=== PATIENT | female | born 1975 | race Caucasian/White ===

== ENCOUNTER → 2021-02-05 | Outpatient (CLI) | payer BC ==
[2021-02-05 17:35] LABS: BASO # 0.1 10^3/uL (0.0-0.2); BASO % 0.8 % (0.0-1.0); EOS # 0.1 10^3/uL (0.0-0.5); EOS % 1.1 % (0.0-3.0); HEMOGLOBIN 13.9 g/dl (12.0-15.5); LYMPH # 2.7 10^3/uL (1.5-5.0); LYMPH % 30.7 % (24.0-44.0); MEAN CORPUSCULAR HEMOGLOBIN 25.9 pg (27.0-33.0); MEAN CORPUSCULAR HGB CONC 32.3 g/dl (32.0-36.5); MEAN CORPUSCULAR VOLUME 80.2 fl (80.0-96.0); MONO # 0.6 10^3/uL (0.0-0.8); NEUTROPHILS # 5.3 10^3/uL (1.5-8.5); NEUTROPHILS % 60.1 % (36.0-66.0); PLATELET COUNT, AUTOMATED 380 10^3/uL (150-450); RED BLOOD COUNT 5.36 10^6/uL (4.00-5.40); WHITE BLOOD COUNT 8.7 10^3/uL (4.0-10.0)
== END ==
LOC: M LAB 16:38
PROVIDERS: ATTEND Ophthalmology
DX: B58.01 Toxoplasma chorioretinitis (principal)

== ENCOUNTER → 2022-02-03 | Outpatient (REF) | payer BC ==
[2022-02-03 16:08] LABS: APPEARANCE, URINE CLEAR (CLEAR); BACTERIA, URINE AUTO NEGATIVE (NEGATIVE); BILIRUBIN, URINE AUTO NEGATIVE (NEGATIVE); BLOOD, URINE BLOOD 3+ (NEGATIVE); COLOR, URINE YELLOW (YELLOW); GLUCOSE, URINE (UA) AUTO NEGATIVE (NEGATIVE); KETONE, URINE AUTO NEGATIVE (NEGATIVE); LEUKOCYTE ESTERASE, URINE AUTO NEGATIVE (NEGATIVE); MUCUS, URINE SMALL (NEGATIVE); NITRITE, URINE AUTO NEGATIVE (NEGATIVE); PROTEIN, URINE AUTO NEGATIVE (NEGATIVE); RBC, URINE AUTO 39 /HPF (0-3); SPECIFIC GRAVITY URINE AUTO 1.013 (1.002-1.035); SQUAMOUS EPITHELIAL CELL UR AU 1 /HPF (0-6); UROBILINOGEN, URINE AUTO 0.2 mg/dL (0.0-2.0); WBC, URINE AUTO 3 /HPF (0-3)
[2022-02-03 16:11] LABS: BASO # 0.1 10^3/uL (0.0-0.2); BASO % 0.6 % (0.0-1.0); EOS # 0.2 10^3/uL (0.0-0.5); EOS % 2.4 % (0.0-3.0); HEMATOCRIT 39.3 % (36.0-47.0); LYMPH # 2.7 10^3/uL (1.5-5.0); LYMPH % 30.7 % (24.0-44.0); MEAN CORPUSCULAR HEMOGLOBIN 27.5 pg (27.0-33.0); MEAN CORPUSCULAR HGB CONC 33.1 g/dl (32.0-36.5); MEAN CORPUSCULAR VOLUME 83.3 fl (80.0-96.0); MONO # 0.8 10^3/uL (0.0-0.8); MONO % 8.4 % (2.0-8.0); NEUTROPHILS # 5.1 10^3/uL (1.5-8.5); NEUTROPHILS % 57.5 % (36.0-66.0); PLATELET COUNT, AUTOMATED 319 10^3/uL (150-450); RED BLOOD COUNT 4.72 10^6/uL (4.00-5.40); WHITE BLOOD COUNT 8.9 10^3/uL (4.0-10.0)
[2022-02-03 16:38] LABS: ALBUMIN 3.7 GM/DL (3.2-5.2); ALT/SGPT 55 U/L (12-78); BILIRUBIN,TOTAL 0.3 MG/DL (0.2-1.0); BLOOD UREA NITROGEN 11 MG/DL (7-18); CALCIUM LEVEL 8.9 MG/DL (8.5-10.1); CARBON DIOXIDE LEVEL 28 MEQ/L (21-32); CHLORIDE LEVEL 105 MEQ/L (98-107); CHOLESTEROL LEVEL 225 MG/DL (<200); CHOLESTEROL RISK RATIO 4.245 (<5); CREATININE FOR GFR 0.91 MG/DL (0.55-1.30); FOLATE 11.1 NG/ML; FREE T4 1.13 NG/DL (0.76-1.46); GLOMERULAR FILTRATION RATE > 60.0 (>58); GLUCOSE, FASTING 99 MG/DL (70-100); HDL CHOLESTEROL 53 MG/DL (>40); LDL CHOLESTEROL 135 MG/DL (<100); NON-HDL-C 172 MG/DL; POTASSIUM SERUM 3.5 MEQ/L (3.5-5.1); SODIUM LEVEL 140 MEQ/L (136-145); TOTAL 25(OH) VITAMIN D 19.9 NG/ML (30.0-100.0); TOTAL PROTEIN 6.9 GM/DL (6.4-8.2); TRIGLYCERIDES LEVEL 183 MG/DL (<150); VITAMIN B12 LEVEL 680 PG/ML
== END ==
LOC: M SFHCCAPE 07:49
PROVIDERS: ATTEND Physician Assistant
DX: Z00.00 Encounter for general adult medical examination without abnormal findings (principal)

== ENCOUNTER → 2022-05-09 | Outpatient (CLI) | payer BC ==
[~2022-05-09] MED LIST: EFFE150C2 PO; ERGO500029 PO; HYDR12CA PO; LAMO100T3 PO; LEVO100T5 PO; OMEP-173 PO
== END ==
LOC: M LABSMTC 11:53
PROVIDERS: ATTEND Anesthesiology
DX: Z11.52 Encounter for screening for COVID-19 (principal); Z20.822 Contact with and (suspected) exposure to COVID-19

== ENCOUNTER → 2022-08-01 | Outpatient (CLI) | payer BC ==
[~2022-08-01] MED LIST changes: +VENL-115 PO; +VRAY1.5C PO
== END ==
LOC: M LABSMTC 10:19
PROVIDERS: ATTEND Anesthesiology
DX: Z01.812 Encounter for preprocedural laboratory examination (principal); Z20.822 Contact with and (suspected) exposure to COVID-19

== ENCOUNTER 2022-08-04 09:38 | Day surgery (SDC) | payer BC ==
[~2022-08-04] VITALS: Ht 170.2 cm; Wt 101.6 kg
[~2022-08-04 09:38] MED LIST changes: +NS 1,000 ML IV ONE
[2022-08-04] MEDS ORDERED: propofoL 200 MG/20 ML VIAL As Ordered ONE ×3 (11:12→11:37)
[2022-08-04] MEDS ORDERED: LIDOCAINE 2% 100MG/5ML SDV (FOR ANES.) As Ordered ONE (11:12)
[2022-08-04] MEDS ORDERED: LABETALOL 100MG/20ML VIAL As Ordered ONE (11:34)
[2022-08-04 12:09] VITALS: BP 111/59
== END 2022-08-04 12:12 | disposition home or self-care (01) ==
LOC: M OPP 09:38
PROVIDERS: ATTEND Surgery
DX: Z12.11 Encounter for screening for malignant neoplasm of colon (principal); K64.9 Unspecified hemorrhoids; K31.89 Other diseases of stomach and duodenum; K31.7 Polyp of stomach and duodenum; K30 Functional dyspepsia; Z79.899 Other long term (current) drug therapy; Z88.0 Allergy status to penicillin; Z88.2 Allergy status to sulfonamides; G47.33 Obstructive sleep apnea (adult) (pediatric); I10 Essential (primary) hypertension; E03.9 Hypothyroidism, unspecified

== ENCOUNTER → 2023-01-19 | Outpatient (REF) | payer BC ==
[~2023-01-19] MED LIST changes: -NS 1,000 ML IV ONE
[2023-01-19 18:00] LABS: THYROID STIMULATING HORMONE 4.815 uIU/ML (0.55-4.78)
[2023-01-19 18:01] LABS: FREE T4 1.11 NG/DL (0.89-1.76)
== END ==
LOC: M SFHCCAPE 07:23
PROVIDERS: ATTEND Physician Assistant
DX: E03.9 Hypothyroidism, unspecified (principal); I10 Essential (primary) hypertension; E55.9 Vitamin D deficiency, unspecified

== ENCOUNTER 2023-02-08 22:39 | Inpatient (IN) | payer BC ==
[~2023-02-08] VITALS: Ht 170.2 cm; Wt 104.3 kg
[2023-02-08] MEDS ORDERED: VENL-115 PO (22:52)
[2023-02-08] MEDS ORDERED: LAMO100T3 PO (22:52)
[2023-02-08] MEDS ORDERED: ERGO500029 PO (22:52)
[2023-02-08] MEDS ORDERED: VENLAFAXINE PO (22:52)
[2023-02-09 00:32] LABS: AMPHETAMINES LEVEL URINE NEGATIVE (NEGATIVE); BARBITURATES URINE NEGATIVE (NEGATIVE); BENZODIAZEPINES URINE NEGATIVE (NEGATIVE); CANNABINOIDS URINE NEGATIVE (NEGATIVE); COCAINE METABOLITE URINE NEGATIVE (NEGATIVE); PHENCYCLIDINE URINE NEGATIVE (NEGATIVE)
[2023-02-09 00:33] LABS: METHADONE URINE NEGATIVE (NEGATIVE); OPIATES URINE NEGATIVE (NEGATIVE)
[2023-02-09 00:34] LABS: ETHYL ALCOHOL (ETHANOL) < 0.003 % (0.000-0.010)
[2023-02-09 00:36] LABS: ACETAMINOPHEN LEVEL < 2.0 UG/ML (10.0-20.0); ALBUMIN 3.6 G/DL (3.2-5.2); ALKALINE PHOSPHATASE 170 U/L (46-116); ALT/SGPT 48 U/L (7.0-40); AST/SGOT 19 U/L (<34); BILIRUBIN,DIRECT < 0.1 MG/DL (<0.4); BILIRUBIN,TOTAL 0.3 MG/DL (0.3-1.2); BLOOD UREA NITROGEN 13 MG/DL (9-23); CALCIUM LEVEL 9.1 MG/DL (8.5-10.1); CARBON DIOXIDE LEVEL 27 MMOL/L (20-31); CHLORIDE LEVEL 102 MMOL/L (98-107); CREATININE FOR GFR 0.76 MG/DL (0.55-1.30); GLOMERULAR FILTRATION RATE > 60.0 (>58); GLUCOSE, FASTING 98 MG/DL (60-100); POTASSIUM SERUM 3.3 MMOL/L (3.5-5.1); SALICYLATE LEVEL < 3.0 MG/DL (<30); SODIUM LEVEL 138 MMOL/L (136-145); TOTAL PROTEIN 6.8 G/DL (5.7-8.2)
[2023-02-09 00:43] LABS: THYROID STIMULATING HORMONE 3.362 uIU/ML (0.55-4.78)
[2023-02-09 00:45] LABS: HEMATOCRIT 40.9 % (36.0-47.0); HEMOGLOBIN 13.5 g/dl (12.0-15.5); MEAN CORPUSCULAR HEMOGLOBIN 27.5 pg (27.0-33.0); MEAN CORPUSCULAR VOLUME 83.3 fl (80.0-96.0); PLATELET COUNT, AUTOMATED 319 10^3/uL (150-450); RED BLOOD COUNT 4.91 10^6/uL (4.00-5.40)
[2023-02-09 00:49] LABS: HCG, SERUM QUALITATIVE NEGATIVE (NEGATIVE)
[2023-02-09] MEDS ORDERED: POTASSIUM CHLORIDE 10MEQ SR TABLET PO ONE ×2 (01:45→07:50)
[2023-02-09] MEDS ORDERED: PRESCAP PO (08:35)
[2023-02-09] MEDS ORDERED: VENLAFAXINE PO (08:37)
[2023-02-09] MEDS ORDERED: HOME MED LIST COMPLETE! XX SCH (08:40)
[2023-02-09] MEDS: OMEPRAZOLE 20MG CAP PO SCH ×2 (09:00→21:27)
[2023-02-09] MEDS ORDERED: NICOTINE 21MG/24HR 1 EA TRANSDERMAL TD SCH (09:00)
[2023-02-09] MEDS ORDERED: traZODone 50 MG TAB PO PRN (13:25)
[2023-02-09] MEDS ORDERED: MOM 30ML SUSPENSION UDC PO PRN (13:25)
[2023-02-09] MEDS ORDERED: ACETAMINOPHEN TAB 650MG DOSE (2X325MG) PO PRN (13:25)
[2023-02-09] MEDS ORDERED: diphenhydrAMINE 25MG CAP PO PRN (13:25)
[2023-02-09] MEDS ORDERED: MAALOX 30 ML SUSP *UDC PO PRN (13:25)
[2023-02-09] MEDS ORDERED: VENL225T25 PO (14:08)
[2023-02-09] MEDS: LEVOTHYROXINE 100MCG TABLET (0.1MG) PO SCH (15:44)
[2023-02-09] MEDS: lamoTRIgine 100MG TAB PO SCH (15:45)
[2023-02-09 15:47] VITALS: BP 142/84
[2023-02-09] MEDS: hydroCHLOROthiazide 12.5 MG CAPSULE PO SCH (21:26)
[2023-02-10] MEDS: LEVOTHYROXINE 100MCG TABLET (0.1MG) PO SCH (05:29)
[2023-02-10 06:11] VITALS: BP 125/76
[2023-02-10] MEDS: VENLAFAXINE **XR** 75MG CAPSULE PO SCH (09:13)
[2023-02-10] MEDS: lamoTRIgine 100MG TAB PO SCH (09:13)
[2023-02-10] MEDS: OMEPRAZOLE 20MG CAP PO SCH ×2 (09:13→20:32)
[2023-02-10] MEDS: hydroCHLOROthiazide 12.5 MG CAPSULE PO SCH (09:13)
[2023-02-10 18:52] VITALS: BP 143/84
[2023-02-10] MEDS ORDERED: BACLOFEN 5MG PER 1/2 TABLET PO PRN (19:20)
[2023-02-11] MEDS: LEVOTHYROXINE 100MCG TABLET (0.1MG) PO SCH (05:33)
[2023-02-11 05:58] VITALS: BP 141/70
[2023-02-11 06:00] VITALS: BP 141/70
[2023-02-11] MEDS: hydroCHLOROthiazide 12.5 MG CAPSULE PO SCH (08:27)
[2023-02-11] MEDS: lamoTRIgine 100MG TAB PO SCH (08:27)
[2023-02-11] MEDS: OMEPRAZOLE 20MG CAP PO SCH ×2 (08:27→20:11)
[2023-02-11] MEDS: VENLAFAXINE **XR** 75MG CAPSULE PO SCH (08:27)
[2023-02-11] MEDS ORDERED: hydrOXYzine 50 MG TAB PO PRN (16:00)
[2023-02-11 16:12] VITALS: BP 133/83
[2023-02-12] MEDS: LEVOTHYROXINE 100MCG TABLET (0.1MG) PO SCH (05:28)
[2023-02-12 06:18] VITALS: BP 117/66
[2023-02-12] MEDS: OMEPRAZOLE 20MG CAP PO SCH ×2 (08:27→20:26)
[2023-02-12] MEDS: VENLAFAXINE **XR** 75MG CAPSULE PO SCH (08:28)
[2023-02-12] MEDS: lamoTRIgine 100MG TAB PO SCH (08:28)
[2023-02-12] MEDS: hydroCHLOROthiazide 12.5 MG CAPSULE PO SCH (08:28)
[2023-02-12 16:20] VITALS: BP 134/82
[2023-02-13] MEDS: LEVOTHYROXINE 100MCG TABLET (0.1MG) PO SCH (06:08)
[2023-02-13] MEDS: VENLAFAXINE **XR** 75MG CAPSULE PO SCH (08:25)
[2023-02-13] MEDS: hydroCHLOROthiazide 12.5 MG CAPSULE PO SCH (08:25)
[2023-02-13] MEDS: OMEPRAZOLE 20MG CAP PO SCH ×2 (08:25→20:02)
[2023-02-13] MEDS: lamoTRIgine 100MG TAB PO SCH (08:25)
[2023-02-13 09:54] VITALS: BP 133/86
[2023-02-13 18:35] VITALS: BP 128/81
[2023-02-14] MEDS: LEVOTHYROXINE 100MCG TABLET (0.1MG) PO SCH (05:30)
[2023-02-14 05:57] VITALS: BP 118/74
[2023-02-14] MEDS: lamoTRIgine 100MG TAB PO SCH (08:32)
[2023-02-14] MEDS: OMEPRAZOLE 20MG CAP PO SCH ×2 (08:33→20:09)
[2023-02-14] MEDS: VENLAFAXINE **XR** 75MG CAPSULE PO SCH (08:33)
[2023-02-14] MEDS: hydroCHLOROthiazide 12.5 MG CAPSULE PO SCH (08:33)
[2023-02-14] MEDS: IBUPROFEN 400MG TAB PO PRN ×2 (08:35→20:09)
[2023-02-14 18:40] VITALS: BP 146/70
[2023-02-15] MEDS: LEVOTHYROXINE 100MCG TABLET (0.1MG) PO SCH (05:33)
[2023-02-15 06:18] VITALS: BP 127/69
[2023-02-15] MEDS: OMEPRAZOLE 20MG CAP PO SCH ×2 (09:11→20:50)
[2023-02-15] MEDS: lamoTRIgine 100MG TAB PO SCH (09:11)
[2023-02-15] MEDS: VENLAFAXINE **XR** 75MG CAPSULE PO SCH (09:11)
[2023-02-15] MEDS: hydroCHLOROthiazide 12.5 MG CAPSULE PO SCH (09:11)
[2023-02-15] MEDS ORDERED: VENL150C43 PO (13:18)
[2023-02-15] MEDS ORDERED: HYDR50TA70 PO (13:18)
[2023-02-15] MEDS ORDERED: LAMO100T3 PO (13:18)
[2023-02-15] MEDS ORDERED: BACL10TA2 PO (13:18)
[2023-02-15] MEDS ORDERED: VENL225T25 PO (13:18)
[2023-02-15] MEDS: IBUPROFEN 400MG TAB PO PRN (15:29)
[2023-02-15 18:51] VITALS: BP 139/84
[2023-02-16] MEDS: LEVOTHYROXINE 100MCG TABLET (0.1MG) PO SCH (05:47)
[2023-02-16 06:33] VITALS: BP 143/73
[2023-02-16] MEDS: hydroCHLOROthiazide 12.5 MG CAPSULE PO SCH (09:29)
[2023-02-16] MEDS: lamoTRIgine 100MG TAB PO SCH (09:29)
[2023-02-16] MEDS: OMEPRAZOLE 20MG CAP PO SCH (09:30)
[2023-02-16] MEDS: VENLAFAXINE **XR** 75MG CAPSULE PO SCH (09:30)
== END 2023-02-16 11:16 | disposition home or self-care (01) | DRG 753 ==
LOC: M ED 22:39 → M ED INP 02-09 13:24 → M PSY 02-09 14:47
PROVIDERS: ADMIT Psychiatry & Neurology Psychiatry; ATTEND Student in an Organized Health Care Education/Training Program
DX: F31.30 Bipolar disorder, current episode depressed, mild or moderate severity, unspecified (principal); R45.851 Suicidal ideations; F63.0 Pathological gambling; E03.9 Hypothyroidism, unspecified; G47.33 Obstructive sleep apnea (adult) (pediatric); K21.9 Gastro-esophageal reflux disease without esophagitis; E55.9 Vitamin D deficiency, unspecified; I10 Essential (primary) hypertension; E66.01 Morbid (severe) obesity due to excess calories; Z79.890 Hormone replacement therapy; Z79.899 Other long term (current) drug therapy; Z88.0 Allergy status to penicillin; Z88.2 Allergy status to sulfonamides

== ENCOUNTER → 2023-03-08 | Outpatient (REF) | payer BC ==
[~2023-03-08] MED LIST changes: +BACL10TA2 PO; +HYDR50TA70 PO; +PRESCAP PO; +VENL150C43 PO; +VENL225T32 PO; +VENLAFAXINE PO
[2023-03-08 17:47] LABS: BASO % 0.6 % (0.0-1.0); EOS # 0.1 10^3/uL (0.0-0.5); EOS % 0.8 % (0.0-3.0); HEMATOCRIT 40.2 % (36.0-47.0); HEMOGLOBIN 13.1 g/dl (12.0-15.5); LYMPH # 2.2 10^3/uL (1.5-5.0); LYMPH % 33.7 % (24.0-44.0); MEAN CORPUSCULAR HEMOGLOBIN 27.4 pg (27.0-33.0); MEAN CORPUSCULAR HGB CONC 32.6 g/dl (32.0-36.5); MEAN CORPUSCULAR VOLUME 84.1 fl (80.0-96.0); MONO # 0.6 10^3/uL (0.0-0.8); MONO % 9.1 % (2.0-8.0); NEUTROPHILS # 3.6 10^3/uL (1.5-8.5); NEUTROPHILS % 55.5 % (36.0-66.0); PLATELET COUNT, AUTOMATED 290 10^3/uL (150-450); RED BLOOD COUNT 4.78 10^6/uL (4.00-5.40); WHITE BLOOD COUNT 6.5 10^3/uL (4.0-10.0)
[2023-03-08 17:53] LABS: HEMOGLOBIN A1c 5.2 % (4.0-6.0)
[2023-03-08 18:15] LABS: ALBUMIN 3.8 G/DL (3.2-5.2); ALKALINE PHOSPHATASE 131 U/L (46-116); ALT/SGPT 30 U/L (7.0-40); AST/SGOT 19 U/L (<34); BILIRUBIN,TOTAL 0.3 MG/DL (0.3-1.2); BLOOD UREA NITROGEN 18 MG/DL (9-23); CALCIUM LEVEL 9.1 MG/DL (8.5-10.1); CARBON DIOXIDE LEVEL 28 MMOL/L (20-31); CHLORIDE LEVEL 104 MMOL/L (98-107); CHOLESTEROL LEVEL 237 MG/DL (<200); CREATININE FOR GFR 0.79 MG/DL (0.55-1.30); FREE T4 1.12 NG/DL (0.89-1.76); GLOMERULAR FILTRATION RATE > 60.0 (>58); GLUCOSE, FASTING 98 MG/DL (60-100); HDL CHOLESTEROL 51.5 MG/DL (>40); LDL CHOLESTEROL 154.3 MG/DL (<100); NON-HDL-C 185.5 MG/DL; POTASSIUM SERUM 3.5 MMOL/L (3.5-5.1); SODIUM LEVEL 137 MMOL/L (136-145); THYROID STIMULATING HORMONE 1.727 uIU/ML (0.55-4.78); TOTAL 25(OH) VITAMIN D 63.5 NG/ML (20.0-100.0); TOTAL PROTEIN 6.7 G/DL (5.7-8.2); TRIGLYCERIDES LEVEL 156 MG/DL (<150)
== END ==
LOC: M SFHCCAPE 08:14
PROVIDERS: ATTEND Physician Assistant
DX: R94.6 Abnormal results of thyroid function studies (principal); Z13.6 Encounter for screening for cardiovascular disorders

== ENCOUNTER → 2023-03-15 | Outpatient (CLI) | payer BC | LOC: M WHC 16:46 | PROVIDERS: ATTEND Physician Assistant | DX: Z12.31 Encounter for screening mammogram for malignant neoplasm of breast (principal) ==

== ENCOUNTER → 2023-03-17 | Outpatient (REF) | payer BC | LOC: M SFHCCAPE 08:47 | PROVIDERS: ATTEND Physician Assistant | DX: R74.8 Abnormal levels of other serum enzymes (principal); J02.9 Acute pharyngitis, unspecified; Z53.8 Procedure and treatment not carried out for other reasons ==

== ENCOUNTER → 2023-03-22 | Outpatient (REF) | payer BC ==
[2023-03-22 17:50] LABS: ALKALINE PHOSPHATASE 133 U/L (46-116)
[2023-03-22 18:14] LABS: MONO REFLEX EBV COMP NEGATIVE (NEGATIVE)
== END ==
LOC: M SFHCCAPE 09:55
PROVIDERS: ATTEND Physician Assistant
DX: R74.8 Abnormal levels of other serum enzymes (principal); J02.9 Acute pharyngitis, unspecified

== ENCOUNTER → 2023-04-26 | Outpatient (CLI) | payer BC | LOC: M RAD 08:24 | PROVIDERS: ATTEND Physician Assistant | DX: K76.0 Fatty (change of) liver, not elsewhere classified (principal); R16.1 Splenomegaly, not elsewhere classified; K80.20 Calculus of gallbladder without cholecystitis without obstruction ==

== ENCOUNTER → 2023-11-14 | Outpatient (CLI) | payer BC ==
[~2023-11-14] MED LIST changes: -EFFE150C2 PO; +EFFE150C3 PO
[2023-11-14 15:40] LABS: BASO % 0.4 % (0.0-1.0); EOS % 0.4 % (0.0-3.0); HEMATOCRIT 40.9 % (36.0-47.0); HEMOGLOBIN 13.6 g/dl (12.0-15.5); LYMPH # 2.5 10^3/uL (1.5-5.0); LYMPH % 25.5 % (24.0-44.0); MEAN CORPUSCULAR HEMOGLOBIN 28.5 pg (27.0-33.0); MEAN CORPUSCULAR HGB CONC 33.3 g/dl (32.0-36.5); MEAN CORPUSCULAR VOLUME 85.6 fl (80.0-96.0); MONO # 0.7 10^3/uL (0.0-0.8); MONO % 7.5 % (2.0-8.0); NEUTROPHILS # 6.5 10^3/uL (1.5-8.5); NEUTROPHILS % 65.8 % (36.0-66.0); PLATELET COUNT, AUTOMATED 275 10^3/uL (150-450); RED BLOOD COUNT 4.78 10^6/uL (4.00-5.40); WHITE BLOOD COUNT 9.9 10^3/uL (4.0-10.0)
[2023-11-14 15:48] LABS: ALBUMIN 3.7 G/DL (3.2-5.2); ALKALINE PHOSPHATASE 123 U/L (46-116); ALT/SGPT 32 U/L (7.0-40); AST/SGOT 14 U/L (<34); BILIRUBIN,TOTAL 0.2 MG/DL (0.3-1.2); BLOOD UREA NITROGEN 13 MG/DL (9-23); CALCIUM LEVEL 9.5 MG/DL (8.5-10.1); CARBON DIOXIDE LEVEL 29 MMOL/L (20-31); CHLORIDE LEVEL 102 MMOL/L (98-107); CREATININE FOR GFR 0.77 MG/DL (0.55-1.30); GLOMERULAR FILTRATION RATE > 60.0 (>58); GLUCOSE, FASTING 89 MG/DL (60-100); POTASSIUM SERUM 3.6 MMOL/L (3.5-5.1); RHEUMATOID FACTOR QUANT < 3.5 IU/ML (<14); SODIUM LEVEL 137 MMOL/L (136-145); TOTAL PROTEIN 6.8 G/DL (5.7-8.2)
[2023-11-14 15:49] LABS: FOLATE 11.32 NG/ML (>5.4); THYROID STIMULATING HORMONE 3.295 uIU/ML (0.55-4.78); TOTAL 25(OH) VITAMIN D 53.4 NG/ML (20.0-100.0)
[2023-11-14 15:50] LABS: VITAMIN B12 LEVEL 338 PG/ML (211-911)
[2023-11-14 15:56] LABS: ERYTHROCYTE SEDIMENTATION RATE 44 mm/hr (0-20)
== END ==
LOC: M PLALAB 12:50
PROVIDERS: ATTEND Psychiatry & Neurology Neurology
DX: R41.9 Unspecified symptoms and signs involving cognitive functions and awareness (principal)

== ENCOUNTER → 2023-12-19 | Outpatient (CLI) | payer BC | LOC: M RAD 07:59 | PROVIDERS: ATTEND Physician Assistant Medical | DX: K76.0 Fatty (change of) liver, not elsewhere classified (principal); R16.0 Hepatomegaly, not elsewhere classified ==

== ENCOUNTER → 2025-02-07 | Outpatient (CLI) | payer BC ==
[2025-02-07 16:26] LABS: CREATININE FOR GFR 0.89 MG/DL (0.55-1.30); GLOMERULAR FILTRATION RATE 79.4 (>58)
== END ==
LOC: M LAB 15:39
PROVIDERS: ATTEND Psychiatry & Neurology Neurology
DX: I10 Essential (primary) hypertension (principal)

== ENCOUNTER → 2025-04-16 | Outpatient (REF) | payer BC ==
[~2025-04-16] MED LIST changes: +VENL225T PO; -VENL225T32 PO
[2025-04-16 17:16] LABS: THYROID STIMULATING HORMONE 2.246 uIU/ML (0.55-4.78); TOTAL 25(OH) VITAMIN D 61.9 NG/ML (20.0-100.0)
[2025-04-16 17:18] LABS: FREE T4 1.14 NG/DL (0.89-1.76)
[2025-04-16 17:19] LABS: ALBUMIN 3.6 G/DL (3.2-5.2); BILIRUBIN,TOTAL 0.3 MG/DL (0.3-1.2); CALCIUM LEVEL 9.2 MG/DL (8.5-10.1); CHOLESTEROL RISK RATIO 3.76 (<5); CREATININE FOR GFR 0.83 MG/DL (0.55-1.30); GLOMERULAR FILTRATION RATE 86.4 (>58); HDL CHOLESTEROL 48.9 MG/DL (>40); LDL CHOLESTEROL 91.1 MG/DL (<100); NON-HDL-C 135.1 MG/DL; POTASSIUM SERUM 3.6 MMOL/L (3.5-5.1); TOTAL PROTEIN 6.3 G/DL (5.7-8.2)
[2025-04-16 17:22] LABS: BASO % 0.5 % (0.0-1.0); EOS # 0.2 10^3/uL (0.0-0.5); EOS % 2.4 % (0.0-3.0); HEMATOCRIT 39.7 % (36.0-47.0); HEMOGLOBIN 13.5 g/dl (12.0-15.5); LYMPH # 2.5 10^3/uL (1.5-5.0); LYMPH % 30.2 % (24.0-44.0); MEAN CORPUSCULAR HEMOGLOBIN 28.1 pg (27.0-33.0); MEAN CORPUSCULAR VOLUME 82.5 fl (80.0-96.0); MONO # 0.8 10^3/uL (0.0-0.8); MONO % 9.2 % (2.0-8.0); NEUTROPHILS # 4.8 10^3/uL (1.5-8.5); NEUTROPHILS % 57.5 % (36.0-66.0); PLATELET COUNT, AUTOMATED 310 10^3/uL (150-450); RED BLOOD COUNT 4.81 10^6/uL (4.00-5.40); WHITE BLOOD COUNT 8.3 10^3/uL (4.0-10.0)
[2025-04-16 17:31] LABS: FOLATE 6.9 NG/ML (>5.4)
== END ==
LOC: M SFHCCAPE 08:39
PROVIDERS: ATTEND Physician Assistant Medical
DX: K76.0 Fatty (change of) liver, not elsewhere classified (principal); E78.5 Hyperlipidemia, unspecified; E03.9 Hypothyroidism, unspecified; K21.9 Gastro-esophageal reflux disease without esophagitis; E55.9 Vitamin D deficiency, unspecified

== ENCOUNTER → 2025-10-03 | Outpatient (CLI) | payer BC ==
[~2025-10-03] MED LIST changes: +HYDR12.510 PO; -HYDR12CA PO
[2025-10-03 16:39] LABS: CREATININE FOR GFR 0.86 MG/DL (0.55-1.30); GLOMERULAR FILTRATION RATE 82.3 (>51)
== END ==
LOC: M LAB 15:38
PROVIDERS: ATTEND Psychiatry & Neurology Neurology
DX: I10 Essential (primary) hypertension (principal)